=== PATIENT | female | born 1980 | race Caucasian/White ===

== ENCOUNTER → 2018-11-01 | Outpatient (CLI) | payer OTHER ==
[~2018-11-01] MED LIST: ALBU90OI6 INH; ALPR.25 PO; ASPI325; AZIT250 PO; CEPH500 PO; CHOL10002 PO; CRUTCH2 USE; HYDACE5 PO; IBUP800; LANS30EC PO; LORA1 PO; Lisinopril2.5 MG PO; MULVITMINE PO; NAPR550 PO; OXYACE5T PO; PROM25 PO; Phentermine HCl30 MG PO; RXOXYACE PO; YASMIN
[2018-11-03 16:06] LABS: HPV 16 Negative (Negative); HPV 18 Negative (Negative); HPV OTHER HR TYPES Negative (Negative)
== END | disposition home or self-care (01) ==
LOC: LAB 09:42 → LAB SHORT 09:42
PROVIDERS: Nurse Practitioner Obstetrics & Gynecology
DX: Z01.419 Encounter for gynecological examination (general) (routine) without abnormal findings (principal)
CPT/HCPCS: 87624; G0123